=== PATIENT | male | born 1990 | race Caucasian/White ===

== ENCOUNTER 2018-06-15 18:27 | Emergency (ER) | payer BC ==
[2018-06-15] MEDS ORDERED: Ketorolac Tromethamine 60 MG/2 ML VIAL ONE (18:48)
--- NOTE | 2018-06-15 19:16 | RAD ---
RIGHT ELBOW TWO VIEW STUDY: 06/15/18 HISTORY: Two view only examination of the right elbow demonstrates evidence for a very large joint effusion. T here is evidence for a very large joint effusion. There is evidence for a radial head fracture. No di slocation. IMPRESSION: Radial head fracture without dislocation. Very large elbow joint effusion. POS: [facility]
--- NOTE | 2018-06-15 19:18 | RAD ---
RIGHT HUMERUS TWO VIEWS: 06/15/18 HISTORY: No fracture, dislocation or other significant acute process involving the humerus. The elbow is not i ncluded on this study. IMPRESSION: No fracture or dislocation or other acute process of the visualized right humerus. POS: [id number]
== END 2018-06-15 19:46 | disposition home or self-care (01) ==
LOC: ERS 18:27
DX: S52.121A Displaced fracture of head of right radius, initial encounter for closed fracture (principal); W19.XXXA Unspecified fall, initial encounter; Y93.51 Activity, roller skating (inline) and skateboarding
CPT/HCPCS: 24650; 96372; J1885